=== PATIENT | female | born 1945 | race Caucasian/White ===

== ENCOUNTER 2019-10-12 19:21 | Emergency (ER) | payer MEDICARE, OTHER ==
[~2019-10-12] VITALS: Ht 172.7 cm; Wt 63.5 kg
[~2019-10-12 19:21] MED LIST: HYDR-3974 PO; LEVO25TA2; SERT100T PO; SIMV20TA2 PO
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
[2019-10-12] MEDS ORDERED: CYCLOBENZAPRINE 10 MG TABLET PO ONE (20:00)
[2019-10-12] MEDS ORDERED: IBUPROFEN 400 MG TABLET PO ONE (20:00)
[2019-10-12] MEDS ORDERED: IBUPROFEN 400 MG TABLET ONE (20:03)
[2019-10-12] MEDS ORDERED: CYCLOBENZAPRINE 10 MG TABLET ONE (20:03)
--- NOTE | 2019-10-12 20:54 | NUR ---
Patient discharged to home in stable condition. Written and verbal after care instructions given. Patient verbalizes understanding of instruction and RX. PT told not to drive. vss. No pain. Pt ambulated with steady gait.
[2019-10-12 21:01] VITALS: BP 126/78
== END 2019-10-12 21:01 | disposition home or self-care (01) ==
LOC: ER 19:22
DX: M54.6 Pain in thoracic spine (principal); E03.9 Hypothyroidism, unspecified; E78.5 Hyperlipidemia, unspecified; F41.9 Anxiety disorder, unspecified; Z98.890 Other specified postprocedural states; Z60.2 Problems related to living alone; Z79.899 Other long term (current) drug therapy; V49.49XA Driver injured in collision with other motor vehicles in traffic accident, initial encounter; Y93.89 Activity, other specified; Y92.413 State road as the place of occurrence of the external cause; Y99.8 Other external cause status
CPT/HCPCS: 71045-TC